=== PATIENT | male | born 2000 | race Caucasian/White ===

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

== ENCOUNTER 2018-08-09 20:14 | Emergency (ER) | payer OTHER ==
[~2018-08-09] VITALS: Ht 177.8 cm; Wt 111.1 kg
[~2018-08-09 20:14] MED LIST changes: +ANAPROX DS550 MG PO; +ROBAXIN500 M1 PO
[2018-08-09 20:17] VITALS: BP 132/71
[2018-08-09] MEDS ORDERED: ZITHROMAX250 MG PO (22:15)
[2018-08-09] MEDS ORDERED: PROAIR HFA8.5 GM INH (22:16)
[2018-08-09] MEDS ORDERED: MEDROL DOSEPAK4 MG PO (22:16)
== END 2018-08-09 22:28 | disposition home or self-care (01) ==
LOC: ED 20:14
DX: J40 Bronchitis, not specified as acute or chronic (principal); R19.7 Diarrhea, unspecified; Z88.1 Allergy status to other antibiotic agents

== ENCOUNTER 2018-08-17 21:42 | Emergency (ER) | payer OTHER ==
[~2018-08-17] VITALS: Ht 180.3 cm; Wt 117.9 kg
--- NOTE | ~2018-08-17 | EKG ---
[place], [place] ELECTROCARDIOGRAM REPORT NAME: MEGAN FRASER UNIT #: [id number] ROOM: DOCTOR: EPIPHANY DRAFT REPORT BIRTHDATE: [birth year] [facility] Test Date: 2018-08-17 Test Time: 23:50:40 Pat Name: MEGAN FRASER Department: Room: Gender: Lay Out Technician: : 2000 Requested By: SHARON MASTERSON Order Number: [id number] Reading MD: Monico Day MD Measurements Intervals [place] Rate: 86 P: 66 DC: 124 QRS: 42 QRSD: 91 T: 45 QT: 353 QTc: 423 Interpretive Statements Sinus rhythm ST elev, probable normal early repol pattern Electronically Signed On 08-20-2018 14:45:25 PDT by Monico Day MD CM:EKGRPT:ELECTROCARDIOGRAM REPORT [id number] SHARON RING DRAFT REPORT SHARON MASTERSON DO
[~2018-08-17 21:42] MED LIST changes: +MEDROL DOSEPAK4 MG PO; +PROAIR HFA8.5 GM INH; +ZITHROMAX250 MG PO
[2018-08-17 21:44] VITALS: BP 143/93
[2018-08-18 00:32] LABS: BASO # 0.1 10*3/uL (0.0-0.1); BASO % 0.4 % (0.0-1.0); EOS # 0.2 10*3/uL (0.0-0.4); EOS % 1.3 % (1.0-4.0); HEMATOCRIT 47.2 % (42.0-52.0); HEMOGLOBIN 15.4 g/dl (14.0-18.0); LYMPH # 4.2 10*3/uL (1.3-4.4); LYMPH % 31.2 % (27.0-41.0); MEAN CELL VOLUME 90.1 fl (80.0-94.0); MEAN CORPUSCULAR HGB 29.4 pg (27.0-31.0); MEAN CORPUSCULAR HGB CONC 32.6 g/dl (33.0-37.0); MEAN PLATELET VOLUME 9.5 fl (9.6-12.3); MONO # 1.1 10*3/uL (0.1-1.0); MONO % 8.1 % (3.0-9.0); NEUT # 7.9 10*3/uL (2.3-7.9); NEUT % 58.3 % (47.0-73.0); PLATELET COUNT AUTOMATED 229 10*3/uL (130-400); RED BLOOD COUNT 5.24 10*6/uL (4.50-5.90); RED CELL DISTRI WIDTH 13.2 % (0-14.5); WHITE BLOOD COUNT 13.5 10*3/uL (4.8-10.8)
[2018-08-18 00:50] LABS: ALBUMIN 3.8 gm/dl (3.1-4.5); ALKALINE PHOSPHATASE 77 U/L (45-117); BUN 16 mg/dl (7-24); CHLORIDE 102 mmol/L (98-107); POTASSIUM 3.8 mmol/L (3.5-5.1); SGOT/AST 14 IU/L (3-35); SGPT/ALT 31 U/L (12-78); SODIUM 139 mmol/L (136-145); TOTAL PROTEIN 6.7 gm/dL (6.4-8.2)
[2018-08-18] MEDS ORDERED: TESSALON PERLE100 MG PO (02:14)
[2018-08-18] MEDS ORDERED: CLARITIN10 MG PO (02:14)
== END 2018-08-18 02:30 | disposition home or self-care (01) ==
LOC: ED 21:42
PROVIDERS: Emergency Medicine
DX: J06.9 Acute upper respiratory infection, unspecified (principal); R05 Cough; R07.81 Pleurodynia; Z88.1 Allergy status to other antibiotic agents; Z79.899 Other long term (current) drug therapy

== ENCOUNTER → 2020-12-06 | Outpatient (CLI) | payer OTHER ==
[~2020-12-06] MED LIST changes: +CLARITIN10 MG PO; +TESSALON PERLE100 MG PO
== END | disposition home or self-care (01) ==
LOC: LAB 14:54
PROVIDERS: ATTEND Pediatrics
DX: J02.9 Acute pharyngitis, unspecified (principal)

== ENCOUNTER → 2020-12-07 | Outpatient (CLI) | payer OTHER ==
[2020-12-07 07:53] LABS: BASO % 0.2 % (0.0-1.0); HEMATOCRIT 46.5 % (42.0-52.0); LYMPH # 1.3 10*3/uL (1.3-4.4); LYMPH % 10.6 % (27.0-41.0); MEAN CELL VOLUME 88.9 fl (80.0-94.0); MEAN CORPUSCULAR HGB CONC 33.8 g/dl (33.0-37.0); MEAN PLATELET VOLUME 9.9 fl (9.6-12.3); MONO # 0.7 10*3/uL (0.1-1.0); MONO % 5.9 % (3.0-9.0); NEUT # 10.4 10*3/uL (2.3-7.9); NEUT % 82.7 % (47.0-73.0); PLATELET COUNT AUTOMATED 250 10*3/uL (130-400); RED BLOOD COUNT 5.23 10*6/uL (4.50-5.90); RED CELL DISTRI WIDTH 12.5 % (0-14.5); WHITE BLOOD COUNT 12.6 10*3/uL (4.8-10.8)
[2020-12-07 08:39] LABS: ALBUMIN 4.2 gm/dl (3.1-4.5); ALKALINE PHOSPHATASE 77 U/L (45-117); BUN 13 mg/dl (7-24); CHLORIDE 106 mmol/L (98-107); CHOLESTEROL 170 mg/dL (<200); CPK 116 U/L (39-308); CREATININE 0.98 mg/dL (0.70-1.30); LDL CHOLESTEROL 121 mg/dL (9-159); POTASSIUM 3.9 mmol/L (3.5-5.1); SGOT/AST 20 IU/L (3-35); SGPT/ALT 44 U/L (12-78); SODIUM 139 mmol/L (136-145); TOTAL PROTEIN 8.1 gm/dL (6.4-8.2); TRIGLYCERIDES 59 mg/dl (<150)
[2020-12-08 14:08] LABS: CREATININE, RANDOM URINE 213.9 mg/dL (Not Estab.)
[2020-12-12 17:06] LABS: METANEPH-CREAT RATIO 0.3 (0.0-1.0)
== END | disposition home or self-care (01) ==
LOC: LAB 07:30
PROVIDERS: ATTEND Pediatrics
DX: E55.9 Vitamin D deficiency, unspecified (principal); D64.9 Anemia, unspecified; I10 Essential (primary) hypertension; R63.4 Abnormal weight loss

== ENCOUNTER 2021-07-14 17:17 | Emergency (ER) | payer OTHER ==
[~2021-07-14] VITALS: Ht 177.8 cm; Wt 99.8 kg
[2021-07-14 17:23] VITALS: BP 148/76
[2021-07-14 19:15] LABS: BASO # 0.1 10*3/uL (0.0-0.1); BASO % 0.8 % (0.0-1.0); EOS # 0.2 10*3/uL (0.0-0.4); EOS % 2.5 % (1.0-4.0); HEMATOCRIT 42.9 % (42.0-52.0); LYMPH # 1.5 10*3/uL (1.3-4.4); LYMPH % 20.5 % (27.0-41.0); MEAN CELL VOLUME 88.8 fl (80.0-94.0); MEAN CORPUSCULAR HGB 30.2 pg (27.0-31.0); MEAN PLATELET VOLUME 9.7 fl (9.6-12.3); MONO # 0.4 10*3/uL (0.1-1.0); MONO % 6.1 % (3.0-9.0); NEUT % 69.8 % (47.0-73.0); PLATELET COUNT AUTOMATED 167 10*3/uL (130-400); RED BLOOD COUNT 4.83 10*6/uL (4.50-5.90); RED CELL DISTRI WIDTH 12.6 % (0-14.5); WHITE BLOOD COUNT 7.2 10*3/uL (4.8-10.8)
[2021-07-14 19:31] LABS: ALKALINE PHOSPHATASE 58 U/L (45-117); BUN 18 mg/dl (7-24); CHLORIDE 105 mmol/L (98-107); CREATININE 1.15 mg/dL (0.70-1.30); SGOT/AST 21 IU/L (3-35); SGPT/ALT 37 U/L (12-78); SODIUM 138 mmol/L (136-145)
[2021-07-14] MEDS ORDERED: CLINDAMYCIN HC300 MG PO (19:59)
[2021-07-14] MEDS ORDERED: LEVOFLOXACIN500 MG PO (20:00)
== END 2021-07-14 20:24 | disposition home or self-care (01) ==
LOC: ED 17:17
PROVIDERS: Emergency Medicine
DX: L03.115 Cellulitis of right lower limb (principal); Z88.1 Allergy status to other antibiotic agents